=== PATIENT | female | born 1960 | race Caucasian/White ===

== ENCOUNTER 2016-10-20 22:43 | Emergency (ER) | payer BC ==
--- NOTE | 2016-10-21 00:09 | ER ---
Date of Service: 10/20/2016 SUBJECTIVE: Taylor presents to the emergency room with complaints of abdominal drainage. The patient has a drain placed into an abscess in her lower abdomen that was performed at [facility] in [place], and they stated that there was more drainage into the bag than there was previous 2 days. They stated that there was a small amount of drainage that was coming around the tube and they are concerned that the tube is displaced. There is drainage noted in the catheter. The patient has not been experiencing any abdominal pain. No fever or chills. She is scheduled to undergo an MRI of her abdomen on Sunday to determine the extent of the infection. PAST MEDICAL HISTORY: Please see history of present illness. MEDICATIONS: 1. Ciprofloxacin 500 mg 1 p.o. b.i.d. 2. Metronidazole 500 mg 1 p.o. t.i.d. 3. Furosemide 40 mg p.o. b.i.d. ALLERGIES: NKDA. PHYSICAL EXAMINATION: General: This is a 56-year-old female patient, who is in no acute distress. Vital Signs: Blood pressure is 140/102, heart rate is 103, respiratory rate is 20, O2 saturations 96%, and temperature is 36.9. Skin: Warm, pink, and dry. HEENT: Head is normocephalic and atraumatic. Mouth, oral mucosa is moist. No erythema or exudate noted in the hypopharynx. Neck: Supple without masses. There is no lymphadenopathy. Lungs: Clear to auscultation. Heart: Regular rate and rhythm. Abdomen: Soft and nontender. She does have a catheter noted in her left lower quadrant. She does have a collection bag and there is a whitish colored discharge in the bag and tubing. There is a small amount of erythema surrounding the tubing. There is a suture holding the catheter in place. It does not appear from an external standpoint that the catheter has migrated. There is no discharge noted around the tube. Bowel sounds are normoactive. The remainder of her physical examination is within normal limits. ASSESSMENT: Drainage around surgical drain. PLAN: Dressing was changed. Again, there did not appear to be any active draining around the tube. There was a fair amount of draining coming through the catheter. Again, she is not experiencing any abdominal pain, fever, or chills. I advised to follow up with her surgeon. I did discuss with them going to [place] to have this evaluated. She would need a nuclear medicine study too under CT or MRI to determine if the catheter migrated internally, but it is unlikely as the suture is in place and she is not experiencing any abdominal pain. She states that she was much more active today doing a lot of walking. She was advised to take it easy and not ambulate as much. All questions were answered. MWK: 10/20/2016 23:34:02 MODL: 10/21/2016 00:01:55 /[id number]
--- NOTE | 2016-10-31 11:48 | ER ---
Date of Service: 10/20/2016 ADDENDUM: REVIEW OF SYSTEMS: General: Denies any fever or chills. HEENT: No sore throat, rhinorrhea, or congestion. Respiratory: No shortness of breath. Cardiac: Denies any substernal chest pain. Gastrointestinal: Please see history of present illness. Genitourinary: Denies any dysuria. Musculoskeletal: No myalgias or arthralgias. MWK: 10/31/2016 08:21:18 MODL: 10/31/2016 11:18:51 /[id number]
== END 2016-10-20 23:16 | disposition home or self-care (01) ==
LOC: VM.ED 22:43
DX: K91.89 Other postprocedural complications and disorders of digestive system (principal)
CPT/HCPCS: 99282

== ENCOUNTER 2016-11-27 19:57 | Emergency (ER) | payer BC ==
[2016-11-27 20:08] VITALS: BP 130/87
--- NOTE | 2016-11-27 20:49 | EDM.PDOC ---
ED HPI GI/ABDOMINAL - General Chief Complaint: Gastrointestinal Problem Stated Complaint: drains coming out Time Seen by Provider: 11/27/16 20:10 Source of Information: Reports: Patient History Limitations: Reports: No limitations - History of Present Illness INITIAL COMMENTS - FREE TEXT/NARRATIVE: Patient reports history of abdominal abscess in the lower left corner that did require drainage to be set up in September. This was insufficient so a second drain was then inserted. One of the drains has been displaced several inches 6- 8 and she has extensive drainage on her bandages. She has no other complaints other than fever and chills which are not new and she has had since she was diagnosed with the abscess. Symptom Onset Date: 11/27/16 Location: [facility] Associated Symptoms (-Female): Reports: fever/chills - Related Data Allergies/ADRs: Allergies Allergy/AdvReac Type Severity Reaction Status Date / Time No Known Allergies Allergy Verified 10/20/16 23:20 Home Meds: Home Meds Ciprofloxacin HCl [Ciprofloxacin HCl] 1 tab PO BID 10/20/16 [History] Furosemide [Furosemide] 1 tab PO BID 10/20/16 [History] metroNIDAZOLE [Flagyl] 1 tab PO TID 10/20/16 [History] Past Medical History - Past Surgical History GI Surgical History: Reports: Cholecystectomy, Other (see below) Other GI Surgeries/Procedures: drain currently in place llq of abd, colonic diverticular abscess with sepsis Social & Family History - Tobacco Use Smoking Status *Q: Never Smoker ED ROS GENERAL - Review of Systems Review Of Systems: ROS reveals no pertinent complaints other than HPI. ED EXAM, GI/ABD - Physical Exam Exam: See Below Exam Limited By: No limitations General Appearance: alert, WD/WN, no apparent distress Eyes: bilateral: EOMI Throat/Mouth: Normal inspection Head: atraumatic, normocephalic Neck: normal inspection Respiratory/Chest: no respiratory distress, lungs clear, normal breath sounds Cardiovascular: normal peripheral pulses, regular rate, rhythm, no edema GI/Abdominal: normal bowel sounds, soft, non tender, no organomegaly, other ( drains located in left lower quad x 2. sutures to both are no longer intact, they will require repositioning.) Extremities: normal inspection Neurological: alert, oriented, CN II-XII intact, normal cognition Psychiatric: normal affect, normal mood Course - Vital Signs Last Recorded V/S: Last Vital Signs Temp 36.8 C 11/27/16 20:00 Pulse 100 11/27/16 20:00 Resp 16 11/27/16 20:00 BP 130/87 11/27/16 20:00 Pulse Ox 95 11/27/16 20:00 - Re-Assessments/Exams Free Text/Narrative Re-Assessment/Exam: 11/27/16 20:53 I did attempt to clean and reinsert drainage tube, but did not continue as I was met with resistance. Call made to [facility] emergency department. Recommendations to have patient return to their er in the am for IR repositioning. Departure - Departure Time of Disposition: 20:49 Disposition: Home, Self-Care 01 Condition: good Clinical Impression: Abdominal abscess Instructions: Sepsis, Adult Forms: ED Department Discharge Additional Instructions: I discussed your case with Dr. Elkin Guy from [facility] emergency room and it was decided that you should return to their emergency department in the morning. They can at that time contact interventional radiology(IR) and insert them under fluoroscopy if needed. Please call us with any questions or concerns in the meantime. I would go to the ED early in the morning to be sure you are able to be seen. - Problem List & Annotations (1) Post-operative complication SNOMED Code(s): 208059368 Code(s): T81.9XXA - UNSPECIFIED COMPLICATION OF PROCEDURE, INITIAL ENCOUNTER Status: Acute Priority: Low Current Visit: No Qualifiers: Surgical complication system/body Area: digestive system Surgical complication type: unspecified Procedure type: digestive system Qualified Code(s): K91.89 - Other postprocedural complications and disorders of digestive system (2) Abdominal abscess SNOMED Code(s): 82053863 Code(s): K65.1 - PERITONEAL ABSCESS Status: Acute Priority: Medium Current Visit: Yes - Problem List Review Problem List Initiated/Reviewed/Updated: Yes - Assessment/Plan Assessment:: post surgical drainage removal Plan: I discussed your case with Dr. Elkin Guy from [facility] emergency room and it was decided that you should return to their emergency department in the morning. They can at that time contact interventional radiology(IR) and insert them under fluoroscopy if needed. Please call us with any questions or concerns in the meantime. I would go to the ED early in the morning to be sure you are able to be seen.
== END 2016-11-27 20:55 | disposition home or self-care (01) ==
LOC: VM.ED 19:57
DX: K91.89 Other postprocedural complications and disorders of digestive system (principal); K65.1 Peritoneal abscess; Z79.899 Other long term (current) drug therapy
CPT/HCPCS: 99282

== ENCOUNTER 2017-04-19 17:11 | Emergency (ER) | payer BC ==
[2017-04-19 17:25] VITALS: BP 147/86
[2017-04-19] MEDS ORDERED: Sodium Chloride 0.9% 10 ML Syringe FLUSH PRN (17:34)
[2017-04-19] MEDS ORDERED: Sodium Chloride 0.9% 1,000 ML IV ONE (17:35)
[2017-04-19] MEDS ORDERED: Ondansetron 4 MG/2 ML SDV IVPUSH ONE ×2 (17:35→17:36)
[2017-04-19] MEDS ORDERED: LORazepam 2 MG/ML SDV IVPUSH ONE (17:36)
[2017-04-19 18:10] LABS: CHLORIDE,CL 106 mmol/L (98-107); SODIUM,NA 142 mmol/L (136-145)
[2017-04-19] MEDS ORDERED: Take Home: LORazepam 0.5 MG Tab, 2 Tab Pack PO ONE (19:06)
--- NOTE | 2017-04-20 01:35 | ER ---
Date of Service: 04/19/2017 SUBJECTIVE: Taylor presents to the emergency room with complaints of vertigo. She states that she does have a history of chronic vestibular associated vertigo and states that she has been experiencing this intermittently for several years. She states that on Sunday she developed a spinning type dizziness and has been experiencing nausea and vomiting since that time. She was seen in the [facility] on Sunday for the same. She was started on meclizine and states that this did nothing to help her symptoms and she feels as though possibly made them worse. She was unable to participate in of vestibular physical therapy secondary due to the fact that she was unable to lay flat. The patient states that she is not experiencing any headache, blurred vision, chest pain, or shortness of breath. Again, she does have an established history of BPPV. PAST MEDICAL HISTORY: 1. Chronic vertigo. 2. Anxiety. 3. Depression. MEDICATIONS: 1. Celexa. 2. Vitamin D3. 3. Tylenol. ALLERGIES: NKDA. REVIEW OF SYSTEMS: General: No fever or chills. HEENT: No sore throat, rhinorrhea, or congestion. Respiratory: No shortness of breath. Cardiac: Denies any substernal chest pain. No jaw, arm, neck, or back pain. Gastrointestinal: Positive for nausea and vomiting. No melena, hematochezia, or hematemesis. : Denies any dysuria. Musculoskeletal: No myalgias or arthralgias. Neurologic: No fainting, blackouts, or lightheadedness. Please see history of present illness. PHYSICAL EXAMINATION: General: This is a 56-year-old female patient, who is in a mild amount of distress. Vital Signs: Blood pressure is 147/86, pulse rate is 99, temperature is 36.1, respiratory rate is 16, O2 saturations 99%. Skin: Warm, pink, and dry. HEENT: Head is normocephalic, atraumatic. Eyes, PERRLA. She does have horizontal nystagmus and her Porter-Hallpike test is positive. No obvious papilledema noted. Ears, TMs are clear. Mouth, oral mucosa is mildly dry. Neck: Supple without masses. There is no lymphadenopathy. Lungs: Clear to auscultation. Heart: Regular rate and rhythm. Abdomen: Soft and nontender. There is no hepatosplenomegaly noted. There are no masses noted. Extremities: Without edema. Neurologic: The patient is alert, oriented, answers all questions appropriately. Unable to assess the patient's gait initially due to her severe unsteadiness. Also unable to assess her Romberg. Remainder of her physical examination is within normal limits. LABORATORY DATA: WBCs 6.4, hemoglobin is 13.6, platelets are 221. Chemistry; sodium is 142, potassium is 4.5, chloride is 106, bicarb is 27, BUN is 11, creatinine 0.9. Creatinine clearance is 53.9, glucose is 94, calcium is 9.5, corrected calcium is 9.98, total bilirubin is 0.5, AST is 16, ALT is 12, alkaline phosphatase is 72, total protein is 7.7, albumin is 3.4. EMERGENCY ROOM COURSE: IV access was established. The patient was given a liter of normal saline. She was also given Zofran 4 mg IV. She was given Ativan 1 mg IV and observed for a period of time. She completely resolved. She reported complete resolution in her symptoms and wished to be discharged. ASSESSMENT: Benign paroxysmal positional vertigo. PLAN: The patient will be discharged. I did discuss findings with the patient and her . I did advise them to follow up tomorrow at [facility] for vestibular physical therapy as Ativan is really only help with the symptoms and she will have a longer duration of relief from her symptoms with vestibular PT. They stated that they would contact the clinic tomorrow to make an appointment. She was prescribed Ativan 0.5 mg tablets with instructions to take 1 twice daily as needed for vertigo. All questions were answered. MWK: 04/19/2017 19:54:08 MODL: 04/20/2017 01:27:56 /[id number]
== END 2017-04-19 19:30 | disposition home or self-care (01) ==
LOC: VM.ED 17:11
DX: H81.10 Benign paroxysmal vertigo, unspecified ear (principal); F41.9 Anxiety disorder, unspecified
CPT/HCPCS: 36415; 80053; 85025; 96361; 96374; 96375; 99283; A9270; J2060; J2405; J7030

== ENCOUNTER 2019-01-12 15:17 | Emergency (ER) | payer BC ==
[2019-01-12] MEDS ORDERED: methylPREDNISolone Sodium Succinate 125 MG/2 ML SDV IM ONE (15:40)
[2019-01-12] MEDS ORDERED: diphenhydrAMINE 50 MG/ML SDV IM ONE (15:41)
[2019-01-12] MEDS ORDERED: Take Home: predniSONE 20 MG, 2 Tab Pack PO ONE (16:19)
[2019-01-12 16:39] VITALS: BP 152/86
--- NOTE | 2019-01-13 05:45 | EDM.PDOC ---
ED HPI GENERAL MEDICAL PROBLEM - General Chief Complaint: Allergic Reaction Stated Complaint: HAVING REACTION TO MED Time Seen by Provider: 01/12/19 15:34 Source of Information: Reports: Patient History Limitations: Reports: No Limitations - History of Present Illness INITIAL COMMENTS - FREE TEXT/NARRATIVE: PtDeja presents to ER with complaints of hives. She states that she was at work when the symptoms started. She denies any new medications, food, soaps, or detergents that she is aware of. She denies any shortness of breath. No throat tightness. She does feel that her lips feel somewhat edematous. Her only other complaint is erythema, pruritus, and urticaria to face, torso, and extremities. Denies any nausea or vomiting. Onset: Today Onset Date: 01/12/19 - Related Data Allergies Allergy/AdvReac Type Severity Reaction Status Date / Time No Known Allergies Allergy Verified 01/12/19 16:37 Home Meds: Home Meds Acetaminophen [Tylenol] 650 mg PO Q4H PRN 04/19/17 [History] Cholecalciferol (Vitamin D3) [Vitamin D3] 1,000 unit PO DAILY 04/19/17 [History] Citalopram [Celexa] 20 mg PO DAILY 04/19/17 [History] Past Medical History Gastrointestinal History: Reports: Other (See Below) Other Gastrointestinal History: diverticulitis Musculoskeletal History: Reports: RA Psychiatric History: Reports: Anxiety, Depression - Past Surgical History GI Surgical History: Reports: Cholecystectomy, Other (See Below) Other GI Surgeries/Procedures: colon resection with ileostomy Social & Family History - Tobacco Use Smoking Status *Q: Never Smoker - Caffeine Use Caffeine Use: Reports: None - Recreational Drug Use Recreational Drug Use: No ED ROS ALLERGIC REACTION - Review of Systems Review Of Systems: See Below Constitutional: Reports: No Symptoms HEENT: Reports: No Symptoms Respiratory: Reports: No Symptoms Cardiovascular: Reports: No Symptoms Endocrine: Reports: No Symptoms GI/Abdominal: Reports: No Symptoms : Reports: No Symptoms Musculoskeletal: Reports: No Symptoms Skin: Reports: Pruritis, Rash, Erythema Neurological: Reports: No Symptoms Psychiatric: Reports: No Symptoms Hematologic/Lymphatic: Reports: No Symptoms Immunologic: Reports: Other (unknown cause of allergy) ED EXAM GENERAL NO PERIP PULSE - Physical Exam Exam: See Below Exam Limited By: No Limitations General Appearance: Alert, WD/WN, No Apparent Distress Eye Exam: Bilateral Eye: EOMI, Normal Fundi, Normal Inspection, PERRL Nose: Normal Inspection, Normal Mucosa, No Blood Throat/Mouth: Normal Inspection, Normal Lips, Normal Teeth, Normal Gums, Normal Oropharynx, Normal Voice, No Airway Compromise Head: Atraumatic, Normocephalic Neck: Normal Inspection, Supple, Non-Tender, Full Range of Motion Respiratory/Chest: No Respiratory Distress, Lungs Clear, Normal Breath Sounds, No Accessory Muscle Use, Chest Non-Tender Cardiovascular: Normal Peripheral Pulses, Regular Rate, Rhythm, No Edema, No Gallop, No JVD, No Murmur, No Rub GI/Abdominal: Normal Bowel Sounds, Soft, Non-Tender, No Organomegaly, No Distention, No Abnormal Bruit, No Mass (Female) Exam: Deferred Rectal (Female) Exam: Deferred Back Exam: Normal Inspection, Full Range of Motion, NT Extremities: Normal Inspection, Normal Range of Motion, Non-Tender, Normal Capillary Refill, No Pedal Edema Neurological: Alert, Oriented, CN II-XII Intact, Normal Cognition, Normal Gait, Normal Reflexes, No Motor/Sensory Deficits Psychiatric: Normal Affect, Normal Mood Skin Exam: Erythema, Other (urticaria) Course - Vital Signs Last Recorded V/S: Last Vital Signs Temp 36.1 C 01/12/19 15:30 Pulse 67 01/12/19 15:30 Resp 14 01/12/19 15:30 BP 152/86 H 01/12/19 15:30 Pulse Ox 98 01/12/19 15:30 - Orders/Labs/Meds Meds: Medications Discontinued Medications Generic Name Dose Route Start Last Admin Trade Name Jodie PRN Reason Stop Dose Admin Diphenhydramine HCl 50 mg 01/12/19 15:41 01/12/19 15:55 Benadryl IM 01/12/19 15:42 50 mg ONETIME ONE Administration Methylprednisolone Sodium Succinate 125 mg 01/12/19 15:40 01/12/19 15:55 Solu-Medrol IM 01/12/19 15:41 125 mg ONETIME ONE Administration Prednisone 1 packet 01/12/19 16:19 01/12/19 16:35 Take Home: Prednisone 20 Mg, 2 Tab Pack PO 01/12/19 16:20 1 packet ONETIME ONE Administration - Re-Assessments/Exams Free Text/Narrative Re-Assessment/Exam: Pt. was given benadryl 50mg IM and solu medrol 125mg IV. She was observed and reported significant improvement in the symptoms. Departure - Departure Time of Disposition: 16:36 Disposition: Home, Self-Care 01 Condition: Good Clinical Impression: Allergic reaction - Discharge Information Instructions: Allergies, Adult, [id number], Diphenhydramine capsules or tablets, Prednisone tablets Referrals: Rosalba Billingsley REGISTERED NURSE RENAL [Primary Care Provider] - Forms: ED Department Discharge Additional Instructions: Benadryl 50mg every 4-6 hours Prednisone 40mg once daily for 6 days. You can start this tomorrow. Return to ER if you have increased shortness of breath or throat tightness. Follow-up with PCP. If you are continuing to have symptoms, you should see an communication center operator. - Assessment/Plan Plan: Benadryl 50mg every 4-6 hours Prednisone 40mg once daily for 6 days. You can start this tomorrow. Return to ER if you have increased shortness of breath or throat tightness. Follow-up with PCP. If you are continuing to have symptoms, you should see an communication center operator.
== END 2019-01-12 16:36 | disposition home or self-care (01) ==
LOC: VM.ED 15:17
DX: L50.0 Allergic urticaria (principal); F41.9 Anxiety disorder, unspecified; F32.9 Major depressive disorder, single episode, unspecified; Z79.899 Other long term (current) drug therapy
CPT/HCPCS: 99283; A9270; J1200; J2930

== ENCOUNTER 2023-05-12 20:04 | Emergency (ER) | payer BC ==
[2023-05-12] MEDS: Aspirin 81 MG Tab.Chew PO ONE (20:20)
[2023-05-12] MEDS ORDERED: Sodium Chloride 0.9% 10 ML Syringe FLUSH PRN (20:25)
[2023-05-12 20:46] LABS: BASOPHILS PERCENT AUTO 0.4 % (0.2-1.2); EOSINOPHILS ABSOLUTE AUTO 0.1 x10^3/uL (0.0-0.5); EOSINOPHILS PERCENT AUTO 2.4 % (0.0-4.0); HEMATOCRIT 42.8 % (33.0-47.0); HEMOGLOBIN 14.4 g/dL (12.0-16.0); LYMPHOCYTES ABSOLUTE AUTO 1.3 x10^3/uL (1.0-4.8); LYMPHOCYTES PERCENT AUTO 23.5 % (25.0-50.0); MEAN CORPUSCULAR HEMOGLOBIN 29.4 pg (26.0-32.0); MEAN CORPUSCULAR HGB CONC 33.6 g/dL (32.0-36.0); MEAN CORPUSCULAR VOLUME 87.5 fL (78.0-93.0); MONOCYTES ABSOLUTE AUTO 0.4 x10^3/uL (0.0-0.8); NEUTROPHILS ABSOLUTE AUTO 3.5 x10^3/uL (1.8-7.7); NEUTROPHILS PERCENT AUTO 66.7 % (50.0-80.0); PLATELET COUNT,PLT 170 x10^3/uL (130-400); RED BLOOD CELL COUNT 4.89 x10^6/uL (4.00-5.50); WHITE BLOOD CELL COUNT,WBC 5.3 x10^3/uL (4.0-10.0)
[2023-05-12 21:08] LABS: PROTHROMBIN TIME 10.9 SEC (9.5-12.2)
[2023-05-12 21:18] LABS: A/G RATIO 1.06; ALANINE AMINOTRANSFERASE,ALT 19 U/L (14-59); ALBUMIN 3.8 g/dL (3.4-5.0); ALKALINE PHOSPHATASE 82 U/L (46-116); ASPARTATE AMNIOTRANSFERASE,AST 16 U/L (15-37); BILIRUBIN TOTAL 0.5 mg/dL (0.2-1.0); BLOOD UREA NITROGEN,BUN 15 mg/dL (7-18); CALCIUM 9.4 mg/dL (8.5-10.1); CARBON DIOXIDE,CO2 26 mmol/L (21-32); CHLORIDE,CL 105 mmol/L (98-107); CREATININE 1.1 mg/dL (0.55-1.02); GLUCOSE RANDOM 135 mg/dL (70-99); MAGNESIUM 1.5 mg/dL (1.8-2.4); POTASSIUM,K 3.5 mmol/L (3.5-5.1); PROTEIN TOTAL,TP 7.4 g/dL (6.4-8.2); SODIUM,NA 140 mmol/L (136-145); TSH ULTRASENSITIVE 1.341 uIU/mL (0.358-3.74)
[2023-05-12 21:23] LABS: ANION GAP 12.5 mmol/L (5-15); ESTIMATED GFR 58 mL/min (>=60)
[2023-05-12 21:37] VITALS: PULSE 67
[2023-05-12] MEDS: Take Home: predniSONE 20 MG, 2 Tab Pack PO ONE (21:43)
[2023-05-12] MEDS: Take Home: Naproxen 500 MG Tab, 4 Tab Pack PO ONE (21:43)
[2023-05-12 22:36] VITALS: BP 115/62
== END 2023-05-12 22:00 | disposition home or self-care (01) ==
LOC: VM.ED 20:04
DX: R07.89 Other chest pain (principal); I10 Essential (primary) hypertension; Z88.8 Allergy status to other drugs, medicaments and biological substances; Z79.899 Other long term (current) drug therapy
CPT/HCPCS: 71045; 80053; 83735; 84443; 84484; 85025; 85610; 85730; 86140; 93005; 99285; A9270; J7512